=== PATIENT | male | born 1955 | race Two or more races ===

== ENCOUNTER → 2022-07-06 11:49 | Outpatient (BNVA) | payer OTHER, SELFPAY | PROVIDERS: PCP Internal Medicine; Referring Provider Internal Medicine; Visit Provider Student in an Organized Health Care Education/Training Program | DX: M19.90 Unspecified osteoarthritis, unspecified site (principal); R76.8 Other specified abnormal immunological findings in serum | CPT/HCPCS: 99202 ==

== ENCOUNTER 2022-07-11 12:21 | Outpatient (REF) | payer OTHER, SELFPAY ==
[2022-07-11 12:42] LABS: MANUAL DIFF FLAG NO
[2022-07-11 12:46] LABS: Basophils Percent Auto 0.4 % (0-2); Eosinophils Absolute Auto 0.1 X10*3/uL (0.0-0.4); Eosinophils Percent Auto 1.7 % (0-4); Hematocrit 42.8 % (42.0-52.0); Hemoglobin 14.9 g/dl (14.0-18.0); Imm Gran Abs Auto 0.02 X10*3/uL (0.00-0.03); Imm Gran Pct Auto 0.3 % (0.0-0.4); Lymphocytes Percent Auto 28.1 % (20-40); Mean Corpuscular HGB Conc 34.8 g/dl (31.0-36.0); Mean Corpuscular Hemoglobin 29.9 pg (27.0-33.0); Mean Corpuscular Volume 85.9 fL (80.0-98.0); Mean Platelet Volume 10.2 fL (9.4-12.4); Monocytes Absolute Auto 0.5 X10*3/uL (0.1-1.2); Monocytes Percent Auto 6.5 % (2-11); Neutrophils Absolute Auto 4.5 x10*3/uL (2.0-8.3); Platelet Count 180 X10*3/uL (160-400); Red Blood Count 4.98 X10*6/uL (4.60-5.80); Red Cell Distribution Width 11.9 % (11.0-16.0); White Blood Count 7.1 X10*3/uL (4.8-10.8)
[2022-07-11 12:53] LABS: Estimated Average Glucose 111 mg/dL; Hemoglobin A1c % 5.5 %
[2022-07-11 13:35] LABS: Erythrocyte Sedimentation Rate 10 MM/HR (0-15)
[2022-07-11 13:50] LABS: TSH reflex Free T4 1.16 uIU/mL (0.32-4.0)
[2022-07-11 13:52] LABS: HBc Num1 3.93 S/CO (0.00-0.79); Hepatitis A Antibody IgM 0.12 Index (0-0.79); Hepatitis B Surface Antigen Negative (Negative); ~HepC Num1 0.17 S/CO (0.00-0.79); ~Hepatitis A Antibody IgM Nonreactive (Nonreactive); ~Hepatitis B Surface Antibody REACTIVE (Nonreactive); ~Hepatitis C Antibody Nonreactive (Nonreactive)
[2022-07-11 13:54] LABS: Alanine Aminotransferase 16 U/L (0-40); Albumin Level 4.2 g/dL (3.5-5.0); Alkaline Phosphatase 68 U/L (39-117); Anion Gap 13 (12-20); Aspartate Amino Transferase 17 U/L (5-37); Bilirubin Total 0.5 mg/dL (0.0-1.0); Blood Urea Nitrogen 18 mg/dL (9-16); C Reactive Protein 0.38 mg/dL (< or = 0.50); Calcium 9.2 mg/dL (8.4-10.2); Carbon Dioxide 25 mmol/L (22-29); Chloride 106 mmol/L (96-108); Estimated Glomerular Filt Rate 58; Glucose Random 177 mg/dL (60-115); Potassium 4.3 mmol/L (3.3-5.1); Rheumatoid Factor < 13.0 IU/mL (<15.0); Sodium 140 mmol/L (135-145); Thyroid Stimulating Hormone 1.16 uIU/mL (0.32-4.0); Total Protein 6.7 g/dL (6.5-8.0); Uric Acid 6.6 mg/dL (3.4-7.0)
[2022-07-11 14:03] LABS: Appearance Urine Clear; Color Urine Yellow; Glucose Urine UA Negative (Negative); Leukocyte Esterase Urine Negative (Negative); Nitrite Urine Negative (Negative); PH 5.5 (5.0-9.0); Urine Blood Negative (Negative); Urine Ketones Negative (Negative); Urine Protein Negative (Neg-Trace)
[2022-07-11 14:09] LABS: Bacteria Urine None Seen (None Seen); Hyaline Casts Urine 0-2 /LPF (0-2); RBC Urine 0-2 /HPF (0-2); Squamous Epithelial Cell Urine 0-2 /HPF (0-2); WBC Urine 0-5 /HPF (0-5)
[2022-07-11 14:39] LABS: Creatinine Urine 167.81 mg/dL; Total Protein Urine Random < 7 mg/dL (<12)
[2022-07-11 15:02] LABS: HBc Num2 3.98 S/CO; HBc Num3 3.98 S/CO; Hepatitis B Core Antibody Reactive (Nonreactive)
[2022-07-13 21:12] LABS: Prot Elec - Albumin 4.1 g/dL (3.8-4.8); Prot Elec - Alpha1 0.3 g/dL (0.2-0.3); Prot Elec - Alpha2 0.7 g/dL (0.5-0.9); Prot Elec - Beta 1 0.5 g/dL (0.4-0.6); Prot Elec - Beta 2 0.5 g/dL (0.2-0.5); Prot Elec - Gamma 0.9 g/dL (0.8-1.7)
[2022-07-13 22:44] LABS: TS Negative Control Passed; TS Panel A 2; TS Panel B 0; TS Positive Control Passed; TSpotTB Negative (Negative)
[2022-07-13 23:19] LABS: Cardiolipin IgG Ab <2.0 GPL-U/mL
[2022-07-14 11:58] LABS: IgA 314 mg/dL (70-320); IgG 942 mg/dL (600-1540)
[2022-07-14 14:48] LABS: Antibody to SS-A Antigen <1.0 NEG AI (<1.0 NEG); Smith Protein <1.0 NEG AI (<1.0 NEG)
[2022-07-16 15:03] LABS: Anti DNA DS Antibody <1 IU/mL; Antibody to SS-B Antigen <1.0 NEG AI (<1.0 NEG); Complement C3 141 mg/dL (82-185); DNAds, Crithidia Antibody Negative (Negative); IgM 47 mg/dL (50-300); SM/Ribonucleoprotein Ab <1.0 NEG AI (<1.0 NEG); Thyroglobulin Antibodies <1 IU/mL (< or = 1); Thyroid Peroxidase Antibodies 2 IU/mL (<9)
[2022-07-17 18:54] LABS: Angiotensin Converting Enzyme 70.6 U/L (9-67); Cyclic Citrullinated Peptide <16 UNITS
[2022-07-17 22:49] LABS: PTT (LAC) Screen 36 sec (<=40)
[2022-07-18 13:23] LABS: Beta-2 Glycoprotein IgA 6.4 U/mL (<20.0); Beta-2 Glycoprotein IgG <2.0 U/mL (<20.0); Beta-2 Glycoprotein IgM <2.0 U/mL (<20.0); Cardiolipin IgM Ab <2.0 MPL-U/mL
[2022-07-19 07:23] LABS: HLA B27 Negative (Negative)
== END 2022-07-11 12:22 | disposition home or self-care (01) ==
LOC: HO.LAB 12:21
PROVIDERS: PCP Internal Medicine; Visit Provider Student in an Organized Health Care Education/Training Program
DX: Z13.1 Encounter for screening for diabetes mellitus (principal); Z11.59 Encounter for screening for other viral diseases; Z11.7 Encounter for testing for latent tuberculosis infection; M06.9 Rheumatoid arthritis, unspecified; M79.672 Pain in left foot; R76.8 Other specified abnormal immunological findings in serum
CPT/HCPCS: 36415; 80053; 81001; 82164; 82550; 82784; 83036; 84156; 84165; 84443; 84550; 85025; 85597; 85613; 85652; 85730; 86140; 86146; 86147; 86160; 86200; 86225; 86235; 86255; 86334; 86376; 86431; 86481; 86704; 86706; 86709; 86800; 86803; 86812; 87340

== ENCOUNTER 2022-07-26 13:52 | Outpatient (REF) | payer OTHER, SELFPAY ==
--- NOTE | ~2022-07-26 | MR_ITS ---
EXAMINATION: MRI HAND WITHOUT AND WITH CONTRAST, RIGHT CLINICAL INFORMATION: Right hand stiffness COMPARISON: None TECHNIQUE: MRI of the right hand is performed without and with intravenous administration of 10 mL of Gadavist on a 1.5 Vanessa scanner. FINDINGS: There is mild ill-defined edema and enhancement surrounding the 1st, 2nd, and 3rd flexor tendons at the level of the MCP joints. Edema/enhancement of the adjacent subcutaneous fat adjacent to the 1st flexor tendon and mild 2nd and 3rd flexor tenosynovitis in these locations. This is nonspecific and may be inflammatory or posttraumatic. No tendon tear is evident. Bone marrow signal is normal. No joint effusions or periarticular erosions. Collateral ligaments appear intact. MR/MR hand RT wo/w con IMPRESSION: Mild edema/enhancement along the 1st flexor tendon and adjacent soft tissues at the level of the MCP joint. Mild edema/enhancement and tenosynovitis of the 2nd and 3rd flexor tendons at the level of the MCP joints. This is nonspecific, possibly inflammatory. No tendon tear.
== END 2022-07-26 13:53 | disposition home or self-care (01) ==
LOC: HO.MRI 13:52
PROVIDERS: Visit Provider Student in an Organized Health Care Education/Training Program
DX: M25.541 Pain in joints of right hand (principal)
CPT/HCPCS: 73220; A9585

== ENCOUNTER → 2022-08-11 13:33 | Outpatient (BNVA) | payer OTHER, SELFPAY | PROVIDERS: PCP Internal Medicine; Visit Provider Student in an Organized Health Care Education/Training Program | DX: M06.09 Rheumatoid arthritis without rheumatoid factor, multiple sites (principal); Z79.631 Long term (current) use of antimetabolite agent | CPT/HCPCS: 99212 ==

== ENCOUNTER 2022-10-25 15:38 | Outpatient (REF) | payer OTHER, SELFPAY ==
[2022-10-25 15:55] LABS: MANUAL DIFF FLAG NO
[2022-10-25 16:22] LABS: Basophils Percent Auto 0.6 % (0-2); Eosinophils Absolute Auto 0.1 X10*3/uL (0.0-0.4); Eosinophils Percent Auto 1.7 % (0-4); Hematocrit 42.1 % (42.0-52.0); Hemoglobin 14.4 g/dl (14.0-18.0); Imm Gran Abs Auto 0.03 X10*3/uL (0.00-0.03); Imm Gran Pct Auto 0.4 % (0.0-0.4); Lymphocytes Absolute Auto 2.3 X10*3/uL (1.2-4.9); Lymphocytes Percent Auto 31.4 % (20-40); Mean Corpuscular HGB Conc 34.2 g/dl (31.0-36.0); Mean Corpuscular Hemoglobin 30.1 pg (27.0-33.0); Mean Corpuscular Volume 87.9 fL (80.0-98.0); Mean Platelet Volume 10.3 fL (9.4-12.4); Monocytes Absolute Auto 0.6 X10*3/uL (0.1-1.2); Monocytes Percent Auto 8.4 % (2-11); Neutrophils Absolute Auto 4.1 x10*3/uL (2.0-8.3); Neutrophils Percent Auto 57.5 % (45-73); Platelet Count 188 X10*3/uL (160-400); Red Blood Count 4.79 X10*6/uL (4.60-5.80); Red Cell Distribution Width 12.3 % (11.0-16.0); White Blood Count 7.2 X10*3/uL (4.8-10.8)
[2022-10-25 16:57] LABS: Erythrocyte Sedimentation Rate 7 MM/HR (0-15)
[2022-10-25 17:56] LABS: Alanine Aminotransferase 21 U/L (0-40); Alkaline Phosphatase 59 U/L (39-117); Anion Gap 16 (12-20); Aspartate Amino Transferase 19 U/L (5-37); Bilirubin Total 0.8 mg/dL (0.0-1.0); Blood Urea Nitrogen 18 mg/dL (9-16); C Reactive Protein 0.15 mg/dL (< or = 0.50); Calcium 9.2 mg/dL (8.4-10.2); Carbon Dioxide 23 mmol/L (22-29); Chloride 108 mmol/L (96-108); Estimated Glomerular Filt Rate > 60; Glucose Random 99 mg/dL (60-115); Potassium 4.5 mmol/L (3.3-5.1); Sodium 142 mmol/L (135-145); Total Protein 6.6 g/dL (6.5-8.0)
== END 2022-10-25 15:39 | disposition home or self-care (01) ==
LOC: HO.LAB 15:38
PROVIDERS: PCP Internal Medicine; Visit Provider Student in an Organized Health Care Education/Training Program
DX: Z20.2 Contact with and (suspected) exposure to infections with a predominantly sexual mode of transmission (principal); Z79.631 Long term (current) use of antimetabolite agent
CPT/HCPCS: 36415; 80053; 85025; 85652; 86140

== ENCOUNTER → 2022-11-09 14:40 | Outpatient (BNVA) | payer OTHER, SELFPAY | PROVIDERS: PCP Internal Medicine; Visit Provider Student in an Organized Health Care Education/Training Program | DX: Z13.89 Encounter for screening for other disorder (principal) ==

== ENCOUNTER 2023-04-17 07:26 | Outpatient (AMB) | payer OTHER, SELFPAY ==
--- NOTE | 2023-04-17 07:32 | A.OFFVIS_ITS ---
Intake Vital Signs 04/17/23 07:36 Height 5 ft 8 in Weight 222 lb 3.615 oz BMI 33.8 BP 138/76 Blood Pressure Location Rt brachial Position Sitting Pulse 71 Pulse Source Pulse Oximeter Temp 97.5 F Temp Source Skin Pulse Oximetry (%) 97 Oxygen Delivery Method Room Air Intake Visit Reasons: RA Intake Note: Here to follow up on RA. States Humira is not effective. 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 Accompanied by: Self / Same As Patient Allergies ampicillin Adverse Reaction (Unknown, Verified 04/17/23 07:45) Unknown Medication List - Last Reconciled 04/17/23 by Gail Gramajo MD adalimumab (Humira(CF) Pen) inject one - 40 mg/0.4 mL pen every 2 weeks subcut aspirin (Adult Low Dose Aspirin) 81 mg PO DAILY bupropion HCl 100 mg PO BID diclofenac sodium 1% (Arthritis Pain (diclofenac)) 2 grams topical QID duloxetine (Cymbalta) 30 mg PO DAILY ketotifen fumarate 0.025%(0.035%) 1 drp ophthalmic (eye) BID lidocaine 5% (Lidoderm) 1 patch topical DAILY lorazepam 0.5 mg PO .EVERY 6 HOURS PRN nitroglycerin 0.4 mg sublingual Q5M PRN sildenafil (Viagra) 25 mg PO DAILY PRN trazodone 100 mg PO BEDTIME PRN HPI HPI Comments History of Present Illness Details 67-year-old male with seronegative arthr itis returns for follow-up. He has been on Humira last 4-5 months, every 2 weeks. Denies any side effects. States that he feels worse overall. Continues to have pain in his hands, knees, ankles. He had a steroid injection in his left hand 4 months ago which gave him some relief. He was evaluated by hand surgeon and had nerve conduction tests and was told that he has severe carpal tunnel syndrome. He was evaluated by Infectious Disease and was told that Chikungunya infection can also cause carpal tunnel. He has severe tingling and numbness of his right hand. Has stiffness when he tries to make a fist with his right hand Initial history: This is a 66-year-old male with a past medical history of lumbar spinal stenosis s/p lumbar spine surgery, CAD, dyslipidemia, GERD a presents for evaluation of diffuse joint pain. Patient stated he was diagnosed with she can go knee a in 2017 in [place]. Since then his joints have not been the same. He has had pain in his wrists, hands, knees, ankles and feet. The pain however became more intense over the last 6-8 months. He has difficulty grabbing objects with both hands. He has morning stiffness of his hands lasting 1 hour improved with opening his hands under warm water. He also has bilateral knee pain worse on the left with left knee swelling. He also has had bilateral heel pain worse on the left. He has been taking Tylenol Arthritis which does not provide any relief. He takes ibuprofen twice a which also does not seem to help. He denies any skin rashes. He states that his mother had lupus and of colon cancer. His sister was also recently diagnosed with lupus. He was evaluated by Orthopedics 2 weeks ago and had a steroid injection into the left wrist without relief. [facility] Medical History (Updated 04/17/23 @ 08:14 by Gail Gramajo MD) JOAN positive Cervical radiculopathy Lesion of ulnar nerve Granuloma annulare Rotator cuff impingement syndrome CAD (coronary artery disease) GERD (gastroesophageal reflux disease) Dyslipidemia Obesity (BMI 35.0-39.9 without comorbidity) Surgical History Hx of shoulder surgery Hx of colonoscopy History of back surgery Family History Father Diabetes Thyroid disease Mother Colon cancer Lupus Sister Lupus Arthritis Paternal Grandfather No problems noted. Social History Household Members: Spouse Alcohol intake: former Patient Tobacco Use Status: Never used Tobacco service: Yes (Served 26 years ) Current occupational status: retired Review of Systems [employer] Reports arthralgias, Reports joint swelling, Reports numbness, Reports stiffness and Reports tingling Neuro Reports numbness and Reports tingling Physical Exam Vital Signs: Last Vital Signs Temp 97.5 F 04/17/23 07:36 Pulse 71 04/17/23 07:36 BP 138/76 04/17/23 07:36 Pulse Ox 97 04/17/23 07:36 Oxygen Delivery Method Room Air 04/17/23 07:36 BMI result Body Mass Index 33.8 Const General: cooperative, healthy appearing, comfortable, no acute distress and well developed Nutritional Appearance: average body habitus Orientation/consciousness: patient oriented x3 Limitations: no limitations HEENT Head: Yes normocephalic and Yes atraumatic Resp Effort & Inspection: normal respiratory effort and able to speak in complete sentences Neuro General: patient oriented x3 Extrem Other: Right wrist pain with full flexion and extension Right 2nd extensor tendon tenderness Right: No flexor tendon tenderness Right 4th MCP swelling and tenderness Positive MCP squeeze test right hand Left hand without flexor or extensor and tender tenderness No wrist swelling or tenderness or pain with full flexion and extension Bilateral elbow pain with full extension Bilateral anterior shoulder tenderness Normal range of motion of both shoulders Bilateral Achillis tendon tenderness without swelling or erythema Bilateral knee pain with full flexion Bilateral knee warmth and pain at the medial joint line No MTP tenderness to palpation Results Reviewed Results Reviewed: X-RAY EXAM OF HAND, 3+ VIEWS ? Result Date: 05/03/2022 History: Right hand pain. Right hand, 3 views: Compared to 12/02/2020. Very mild 2nd DIP joint degeneration is again noted. There are no other appreciable degenerative changes. There been no significant radiographic changes. Soft tissues are unremarkable. ? IMPRESSION IMPRESSION: Stable mild 2nd DIP joint degeneration. ? X-RAY EXAM OF HAND, 3+ VIEWS ? Result Date: 12/02/2020 History: Right hand pain. Trigger finger, 3rd finger. Right hand, 3 views: There is mild degeneration in the 2nd DIP joint. There are no other appreciable degenerative changes. There are no erosions. Soft tissues are unremarkable. ? IMPRESSION IMPRESSION: Mild 2nd DIP joint degeneration. Right hand MRI 06/2022 IMPRESSION: Mild edema/enhancement along the 1st flexor tendon and adjacent soft tissues at the level of the MCP joint. Mild edema/enhancement and tenosynovitis of the 2nd and 3rd flexor tendons at the level of the MCP joints. This is nonspecific, possibly inflammatory. No tendon tear. Assessment & Plan Assessment & Plan (1) Rheumatoid arthritis: Comment: seroneg dx 08/22 MTX started 08/22 ineffective DC 11/20 Humira 11/20 partially effective Code(s): M06.9 - Rheumatoid arthritis, unspecified Qualifiers: Rheumatoid arthritis location: multiple sites Rheumatoid factor presence: without rheumatoid factor Qualified Code(s): M06.09 - Rheumatoid arthritis without rheumatoid factor, multiple sites Plan: This is a 67-year-old male with seronegative arthritis (eroneg RA vs PsA) returns for follow-up. Has been on Humira 40 mg every other week for the last 4-5 months. States that he feels worse. On exam however patient has fewer tender joints. Humira is at least partially effective. (the majority of involved areas are tendinitis: achilles, biceps tendon, hand tendons, could which can point towards psoriatic arthritis rather than RA) Patient has a follow-up appointment with hand surgeon. He is to be scheduled for carpal tunnel release surgery for right hand, continue Humira 40 mg every other week for now. Will re-evaluate after surgery. Can consider switching to Enbrel or Orencia He has a positive JOAN 1-160 speckled with negative sub serologies, no evidence for other connective tissue disease at this point Labs before next visit in 3 months Infectious screening hepatitis panel and T spot -ve 06/2022 (2) Bilateral carpal tunnel syndrome: Code(s): G56.03 - Carpal tunnel syndrome, bilateral upper limbs Plan: Prescribed a wrist splint Follow-up with hand surgeon (3) High risk medication use: Code(s): Z79.899 - Other superintendent container terminal (current) drug therapy Plan: Side effects of Humira were discussed with the patient in detail including increased risk of infection, demyelinating disease, reactivation of latent TB, possible increased risk of solid and skin tumors. Patient fully aware. Advised patient to seek medical care ROBIN if patient has an infection and advised patient to stop the medication until the infection is resolved. Plan I spent 26 minutes reviewing patient's chart, evaluating patient, placing orders, counseling patient and documenting in the chart Orders: Orders C Reactive Protein 3 Months M06.9 - Rheumatoid arthritis, unspecified Erythrocyte Sedimentation Rate 3 Months M06.9 - Rheumatoid arthritis, unspecified Complete Blood Count Auto Diff 3 Months M06.9 - Rheumatoid arthritis, unspecified Comprehensive Met. Panel 3 Months M06.9 - Rheumatoid arthritis, unspecified Medications: New [wrist splint] wear nightly & as much as possible throughout the day 2 ea 0RF G56.03 - Carpal tunnel syndrome, bilateral upper limbs Coding Level of Care Code Est Pt Level 4 (72233) Diagnoses Rheumatoid arthritis of multiple sites with negative rheumatoid factor M06.09 Rheumatoid arthritis location: multiple sites Rheumatoid factor presence: without rheumatoid factor Bilateral carpal tunnel syndrome G56.03 High risk medication use Z79.899
[2023-04-17 07:36] VITALS: BP 138/76; PULSE 71; TEMP 36.4; O2SAT 97; BMI 33.8
== END 2023-04-17 08:05 | disposition home or self-care (01) ==
PROVIDERS: PCP Nurse Practitioner Family; Visit Provider Student in an Organized Health Care Education/Training Program
DX: M06.09 Rheumatoid arthritis without rheumatoid factor, multiple sites (principal); G56.03 Carpal tunnel syndrome, bilateral upper limbs; Z79.899 Other long term (current) drug therapy
CPT/HCPCS: 99214

== ENCOUNTER → 2023-04-17 07:26 | Outpatient (BNVA) | payer OTHER, SELFPAY | PROVIDERS: PCP Nurse Practitioner Family; Visit Provider Student in an Organized Health Care Education/Training Program ==

== ENCOUNTER 2023-06-02 15:59 | Outpatient (AMB) | payer OTHER, SELFPAY ==
--- NOTE | 2023-06-02 16:00 | MHC.OFFVIS ---
Intake Vital Signs 06/02/23 16:05 Height 5 ft 8 in Weight 220 lb 7.396 oz BMI 33.5 BP 128/62 Blood Pressure Location Rt brachial Position Sitting Pulse 81 Pulse Source Pulse Oximeter Temp 98.1 F Temp Source Skin Pulse Oximetry (%) 96 Intake Visit Reasons: RA Intake Note: Pt last seen 04/17/23, presents today for follow up. He was to follow up in 3 months, he has not completed bloodwork ordered at last visit. He is having a lot of pain in his hands. 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 Accompanied by: Self / Same As Patient Allergies ampicillin Adverse Reaction (Unknown, Verified 06/02/23 16:12) Unknown Medication List - Last Reconciled 06/02/23 by Gail Gramajo MD adalimumab (Humira(CF) Pen) inject one - 40 mg/0.4 mL pen every 2 weeks subcut aspirin (Adult Low Dose Aspirin) 81 mg PO DAILY bupropion HCl 100 mg PO BID diclofenac sodium 1% (Arthritis Pain (diclofenac)) 2 grams topical QID duloxetine (Cymbalta) 30 mg PO DAILY ketotifen fumarate 0.025%(0.035%) 1 drp ophthalmic (eye) BID lidocaine 5% (Lidoderm) 1 patch topical DAILY lorazepam 0.5 mg PO .EVERY 6 HOURS PRN nitroglycerin 0.4 mg sublingual Q5M PRN sildenafil (Viagra) 25 mg PO DAILY PRN trazodone 100 mg PO BEDTIME PRN [wrist splint wear nightly & as much as possible throughout the day] HPI HPI Comments History of Present Illness Details 67-year-old male with seronegative arthritis returns for follow-up. States that he had right hand carpal tunnel release surgery a few weeks ago with improved tingling of his fingers however he continues to have the same pain in both hands worse in the right hand. He also gets intermittent right knee pain especially when standing up after sitting for a while. Initial history: This is a 66-year-old male with a past medical history of lumbar spinal stenosis s/p lumbar spine surgery, CAD, dyslipidemia, GERD a presents for evaluation of diffuse joint pain. 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 Since then his joints have not been the same. He has had pain in his wrists, hands, knees, ankles and feet. The pain however became more intense over the last 6-8 months. He has difficulty grabbing objects with both hands. He has morning stiffness of his hands lasting 1 hour improved with opening his hands under warm water. He also has bilateral knee pain worse on the left with left knee swelling. He also has had bilateral heel pain worse on the left. He has been taking Tylenol Arthritis which does not provide any relief. He takes ibuprofen twice a which also does not seem to help. He denies any skin rashes. He states that his mother had lupus and of colon cancer. His sister was also recently diagnosed with lupus. He was evaluated by Orthopedics 2 weeks ago and had a steroid injection into the left wrist without relief. [facility] Medical History JOAN positive Cervical radiculopathy Lesion of ulnar nerve Granuloma annulare Rotator cuff impingement syndrome CAD (coronary artery disease) GERD (gastroesophageal reflux disease) Dyslipidemia Obesity (BMI 35.0-39.9 without comorbidity) Surgical History History of carpal tunnel release Hx of shoulder surgery Hx of colonoscopy History of back surgery Family History Father Diabetes Thyroid disease Mother Colon cancer Lupus Sister Lupus Arthritis Paternal Grandfather No problems noted. Social History Household Members: Spouse Alcohol intake: former Patient Tobacco Use Status: Never used Tobacco service: Yes (Served 26 years ) Current occupational status: retired Review of Systems [facility] Reports arthralgias, Reports joint swelling and Reports stiffness Physical Exam Vital Signs: Last Vital Signs Temp 98.1 F 06/02/23 16:05 Pulse 81 06/02/23 16:05 BP 128/62 06/02/23 16:05 Pulse Ox 96 06/02/23 16:05 BMI result Body Mass Index 33.5 Const General: cooperative, healthy appearing, comfortable, no acute distress and well developed Nutritional Appearance: average body habitus Orientation/consciousness: patient oriented x3 Limitations: no limitations HEENT Head: Yes normocephalic and Yes atraumatic Resp Effort & Inspection: normal respiratory effort and able to speak in complete sentences Neuro General: patient oriented x3 Extrem Other: Right wrist pain with full flexion and extension Swollen right hand dorsum Right 2nd extensor tendon tenderness Right: 1st 2nd and 3rd flexor tendon tenderness Left hand: 3rd and 4th flexor tendon tender Left elbow pain with full extension Bilateral anterior shoulder tenderness Normal range of motion of both shoulders No Achilles tendon tenderness or swelling bilaterally Office Procedures Tendon Injection Tendon Injection Details: The right palm was prepped with ChloraPrep and alcohol. Under a topical ethyl chloride spray the [1st, 2nd & 3rd] flexor tendon sheath was injected with 20 mg of triamcinolone and 0.2 cc of 1% lidocaine. The patient tolerated the procedure without any acute adverse effects. [id number] Tendon Sheath Injection All charges added?: Procedure code (CPT) selection complete Results Reviewed Results Reviewed: X-RAY EXAM OF HAND, 3+ VIEWS ? Result Date: 05/03/2022 History: Right hand pain. Right hand, 3 views: Compared to 12/02/2020. Very mild 2nd DIP joint degeneration is again noted. There are no other appreciable degenerative changes. There been no significant radiographic changes. Soft tissues are unremarkable. ? IMPRESSION IMPRESSION: Stable mild 2nd DIP joint degeneration. ? X-RAY EXAM OF HAND, 3+ VIEWS ? Result Date: 12/02/2020 History: Right hand pain. Trigger finger, 3rd finger. Right hand, 3 views: There is mild degeneration in the 2nd DIP joint. There are no other appreciable degenerative changes. There are no erosions. Soft tissues are unremarkable. ? IMPRESSION IMPRESSION: Mild 2nd DIP joint degeneration. Right hand MRI 06/2022 IMPRESSION: Mild edema/enhancement along the 1st flexor tendon and adjacent soft tissues at the level of the MCP joint. Mild edema/enhancement and tenosynovitis of the 2nd and 3rd flexor tendons at the level of the MCP joints. This is nonspecific, possibly inflammatory. No tendon tear. Assessment & Plan Assessment & Plan (1) Rheumatoid arthritis: Comment: seroneg dx 08/22 MTX started 08/22 ineffective DC 11/20 Humira 11/20 -06/22 ineffective DC 06/22 Code(s): M06.9 - Rheumatoid arthritis, unspecified Qualifiers: Rheumatoid arthritis location: multiple sites Rheumatoid factor presence: without rheumatoid factor Qualified Code(s): M06.09 - Rheumatoid arthritis without rheumatoid factor, multiple sites Plan: This is a 67-year-old male with seronegative arthritis (eroneg RA vs PsA) returns for follow-up. Has been on Humira 40 mg every other week for the last 7 months without relief. Continues to have multiple tender tendons. Will discontinue Humira. Given significant discomfort. I offered flexor tendon injections today. With patient's consent the right 1st, 2nd and 3rd flexor tendons were injected with Kenalog. Follow-up in 3 weeks to consider injection of left hand flexor tendon Will discuss other DMARDs next visit He has a positive JOAN 1-160 speckled with negative sub serologies, no evidence for other connective tissue disease at this point Labs before next visit in 3 months Infectious screening hepatitis panel and T spot -ve 06/2022 (2) Bilateral carpal tunnel syndrome: Code(s): G56.03 - Carpal tunnel syndrome, bilateral upper limbs Plan: s/p release right hand, by hand surgeon Plan I spent 26 minutes reviewing patient's chart, evaluating patient, counseling patient and documenting in the chart Orders: Orders AMB Injection-Tendon Today M77.8 - Other enthesopathies, not elsewhere classified Coding Level of Care Code Est Pt Level 4 (99423) Diagnoses Rheumatoid arthritis of multiple sites with negative rheumatoid factor M06.09 Rheumatoid arthritis location: multiple sites Rheumatoid factor presence: without rheumatoid factor Bilateral carpal tunnel syndrome G56.03 CPT Codes Tendon Injection - Tendon Injection 1: [id number] Tendon Sheath Injection ([id number])
[2023-06-02 16:05] VITALS: BP 128/62; PULSE 81; TEMP 36.7; O2SAT 96; BMI 33.5
== END 2023-06-02 16:44 | disposition home or self-care (01) ==
PROVIDERS: PCP Nurse Practitioner Family; Visit Provider Student in an Organized Health Care Education/Training Program
DX: M06.09 Rheumatoid arthritis without rheumatoid factor, multiple sites (principal); G56.03 Carpal tunnel syndrome, bilateral upper limbs
CPT/HCPCS: 20550; 99214

== ENCOUNTER → 2023-06-02 15:59 | Outpatient (BNVA) | payer OTHER, SELFPAY | PROVIDERS: PCP Nurse Practitioner Family; Visit Provider Student in an Organized Health Care Education/Training Program | DX: M06.09 Rheumatoid arthritis without rheumatoid factor, multiple sites (principal); G56.03 Carpal tunnel syndrome, bilateral upper limbs; R76.8 Other specified abnormal immunological findings in serum | CPT/HCPCS: 20550 ==

== ENCOUNTER 2023-06-21 10:22 | Outpatient (REF) | payer OTHER, SELFPAY ==
[2023-06-21 10:40] LABS: MANUAL DIFF FLAG NO
[2023-06-21 11:10] LABS: Basophils Percent Auto 0.4 % (0-2); Eosinophils Absolute Auto 0.2 X10*3/uL (0.0-0.4); Eosinophils Percent Auto 2.2 % (0-4); Hematocrit 45.4 % (42.0-52.0); Hemoglobin 15.4 g/dl (14.0-18.0); Imm Gran Abs Auto 0.03 X10*3/uL (0.00-0.03); Imm Gran Pct Auto 0.4 % (0.0-0.4); Lymphocytes Absolute Auto 2.5 X10*3/uL (1.2-4.9); Lymphocytes Percent Auto 37.7 % (20-40); Mean Corpuscular HGB Conc 33.9 g/dl (31.0-36.0); Mean Corpuscular Hemoglobin 29.7 pg (27.0-33.0); Mean Corpuscular Volume 87.6 fL (80.0-98.0); Mean Platelet Volume 10.3 fL (9.4-12.4); Monocytes Absolute Auto 0.6 X10*3/uL (0.1-1.2); Neutrophils Absolute Auto 3.4 x10*3/uL (2.0-8.3); Neutrophils Percent Auto 50.3 % (45-73); Platelet Count 196 X10*3/uL (160-400); Red Blood Count 5.18 X10*6/uL (4.60-5.80); Red Cell Distribution Width 12.2 % (11.0-16.0); White Blood Count 6.7 X10*3/uL (4.8-10.8)
[2023-06-21 11:30] LABS: Alanine Aminotransferase 21 U/L (0-40); Alkaline Phosphatase 58 U/L (39-117); Anion Gap 9 (12-20); Aspartate Amino Transferase 18 U/L (5-37); Bilirubin Total 0.7 mg/dL (0.0-1.0); Blood Urea Nitrogen 17 mg/dL (9-16); C Reactive Protein < 0.10 mg/dL (< or = 0.50); Calcium 9.3 mg/dL (8.4-10.2); Carbon Dioxide 31 mmol/L (22-29); Chloride 107 mmol/L (96-108); Estimated Glomerular Filt Rate 56; Glucose Random 107 mg/dL (60-115); Potassium 4.6 mmol/L (3.3-5.1); Sodium 142 mmol/L (135-145); Total Protein 7.1 g/dL (6.5-8.0)
[2023-06-21 11:53] LABS: Erythrocyte Sedimentation Rate 3 MM/HR (0-15)
== END 2023-06-21 10:23 | disposition home or self-care (01) ==
LOC: HO.LAB 10:22
PROVIDERS: PCP Nurse Practitioner Family; Visit Provider Student in an Organized Health Care Education/Training Program
DX: M06.9 Rheumatoid arthritis, unspecified (principal)
CPT/HCPCS: 36415; 80053; 85025; 85652; 86140

== ENCOUNTER 2023-07-04 10:56 | Outpatient (AMB) | payer OTHER, SELFPAY ==
[2023-07-04 11:40] VITALS: BP 126/68; PULSE 82; TEMP 37; O2SAT 99; BMI 33.2
--- NOTE | 2023-07-04 11:40 | MHC.OFFVIS ---
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 Allergies ampicillin Adverse Reaction (Unknown, Verified 07/04/23 11:46) Unknown Medication List - Last Reconciled 07/04/23 by Gail Gramajo MD aspirin (Adult Low Dose Aspirin) 81 mg PO DAILY bupropion HCl 100 mg PO BID diclofenac sodium 1% (Arthritis Pain (diclofenac)) 2 grams topical QID duloxetine (Cymbalta) 30 mg PO DAILY ketotifen fumarate 0.025%(0.035%) 1 drp ophthalmic (eye) BID lidocaine 5% (Lidoderm) 1 patch topical DAILY lorazepam 0.5 mg PO .EVERY 6 HOURS PRN nitroglycerin 0.4 mg sublingual Q5M PRN sildenafil (Viagra) 25 mg PO DAILY PRN trazodone 100 mg PO BEDTIME PRN [wrist splint wear nightly & as much as possible throughout the day] HPI HPI Comments History of Present Illness Details 67-year-old male with seronegative arthritis returns for follow-up. States that the injections for his right hand flexor tendons done last visit him significant relief. States that the pain is much better overall. 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 He has mild pain in his left hand and knee pain with walking. States he has a house in [place] and he just returned to [place] recently. Feels that the cold weather really affect his joints Initial history: This is a 66-year-old male with a past medical history of lumbar spinal stenosis s/p lumbar spine surgery, CAD, dyslipidemia, GERD a presents for evaluation of diffuse joint pain. Patient stated he was diagnosed with she can go knee a in 2017 in [place]. Since then his joints have not been the same. He has had pain in his wrists, hands, knees, ankles and feet. The pain however became more intense over the last 6-8 months. He has difficulty grabbing objects with both hands. He has morning stiffness of his hands lasting 1 hour improved with opening his hands under warm water. He also has bilateral knee pain worse on the left with left knee swelling. He also has had bilateral heel pain worse on the left. He has been taking Tylenol Arthritis which does not provide any relief. He takes ibuprofen twice a which also does not seem to help. He denies any skin rashes. He states that his mother had lupus and of colon cancer. His sister was also recently diagnosed with lupus. He was evaluated by Orthopedics 2 weeks ago and had a steroid injection into the left wrist without relief. [facility] Medical History JOAN positive Cervical radiculopathy Lesion of ulnar nerve Granuloma annulare Rotator cuff impingement syndrome CAD (coronary artery disease) GERD (gastroesophageal reflux disease) Dyslipidemia Obesity (BMI 35.0-39.9 without comorbidity) Surgical History History of carpal tunnel release Hx of shoulder surgery Hx of colonoscopy History of back surgery Family History Father Diabetes Thyroid disease Mother Colon cancer Lupus Sister Lupus Arthritis Paternal Grandfather No problems noted. Social History Household Members: Spouse Alcohol intake: former Patient Tobacco Use Status: Never used Tobacco service: Yes (Served 26 years ) Current occupational status: retired Review of Systems [facility] [place] Reports arthralgias and Reports stiffness Physical Exam Vital Signs: Last Vital Signs Temp 98.6 F 07/04/23 11:40 Pulse 82 07/04/23 11:40 BP 126/68 07/04/23 11:40 Pulse Ox 99 07/04/23 11:40 Oxygen Delivery Method Room Air 07/04/23 11:40 BMI result Body Mass Index 33.2 Const General: cooperative, healthy appearing, comfortable, no acute distress and well developed Nutritional Appearance: average body habitus Orientation/consciousness: patient oriented x3 Limitations: no limitations HEENT Head: Yes normocephalic and Yes atraumatic Resp Effort & Inspection: normal respiratory effort and able to speak in complete sentences Auscultation: clear to auscultation bilaterally Cardio Rate: regular rate Rhythm: regular rhythm GI Inspection: No distended Palpation (GI): Soft to palpation and nontender Neuro General: patient oriented x3 Extrem Other: No right wrist tenderness or pain with flexion & extension Right 1st MCP tenderness No flexor or extensor tendon tenderness right hand Left hand: 3rd and 4th flexor tendon tenderness Left 1st MCP tenderness Few Heberden's nodes Right knee pain with full flexion Normal range of motion of both shoulders No Achilles tendon tenderness or swelling bilaterally Results Reviewed Results Reviewed: X-RAY EXAM OF HAND, 3+ VIEWS ? Result Date: 05/03/2022 History: Right hand pain. Right hand, 3 views: Compared to 12/02/2020. Very mild 2nd DIP joint degeneration is again noted. There are no other appreciable degenerative changes. There been no significant radiographic changes. Soft tissues are unremarkable. ? IMPRESSION IMPRESSION: Stable mild 2nd DIP joint degeneration. ? X-RAY EXAM OF HAND, 3+ VIEWS ? Result Date: 12/02/2020 History: Right hand pain. Trigger finger, 3rd finger. Right hand, 3 views: There is mild degeneration in the 2nd DIP joint. There are no other appreciable degenerative changes. There are no erosions. Soft tissues are unremarkable. ? IMPRESSION IMPRESSION: Mild 2nd DIP joint degeneration. Right hand MRI 06/2022 IMPRESSION: Mild edema/enhancement along the 1st flexor tendon and adjacent soft tissues at the level of the MCP joint. Mild edema/enhancement and tenosynovitis of the 2nd and 3rd flexor tendons at the level of the MCP joints. This is nonspecific, possibly inflammatory. No tendon tear. Assessment & Plan Assessment & Plan (1) Rheumatoid arthritis: Comment: seroneg dx 08/22 MTX started 08/22 ineffective DC 11/20 Humira 11/20 -06/22 ineffective DC 06/22 Code(s): M06.9 - Rheumatoid arthritis, unspecified Qualifiers: Rheumatoid arthritis location: multiple sites Rheumatoid factor presence: without rheumatoid factor Qualified Code(s): M06.09 - Rheumatoid arthritis without rheumatoid factor, multiple sites Plan: This is a 67-year-old male with seronegative arthritis (seroneg RA vs PsA) who returns for follow-up. Steroid injection for right hand 1st, 2nd and 3rd flexor tendons done last visit provided significant relief. Today patient has no swollen joints and very few tender joints. Patient's left 4th flexor tendon is tender to palpation but does not want another injection today. He has a positive JOAN 1-160 speckled with negative sub serologies, no evidence for other connective tissue disease at this point Patient will be going to [place] for the winter. We will Re-evaluate in 3 months Infectious screening hepatitis panel and T spot -ve 06/2022 (2) Bilateral carpal tunnel syndrome: Code(s): G56.03 - Carpal tunnel syndrome, bilateral upper limbs Plan: s/p release right hand, by hand surgery Plan I spent 26 minutes reviewing patient's chart, evaluating patient, counseling patient and documenting in the chart Coding Level of Care Code Est Pt Level 4 (61593) Diagnoses Rheumatoid arthritis of multiple sites with negative rheumatoid factor M06.09 Rheumatoid arthritis location: multiple sites Rheumatoid factor presence: without rheumatoid factor Bilateral carpal tunnel syndrome G56.03
== END 2023-07-04 12:08 | disposition home or self-care (01) ==
PROVIDERS: PCP Nurse Practitioner Family; Visit Provider Student in an Organized Health Care Education/Training Program
DX: M06.09 Rheumatoid arthritis without rheumatoid factor, multiple sites (principal); G56.03 Carpal tunnel syndrome, bilateral upper limbs
CPT/HCPCS: 99214

== ENCOUNTER → 2023-07-04 10:56 | Outpatient (BNVA) | payer OTHER, SELFPAY | PROVIDERS: PCP Nurse Practitioner Family; Visit Provider Student in an Organized Health Care Education/Training Program ==

== ENCOUNTER 2023-10-18 13:11 | Outpatient (AMB) | payer OTHER, SELFPAY ==
--- NOTE | 2023-10-18 13:13 | A.OFFVIS_ITS ---
Intake Vital Signs 10/18/23 13:19 Height 5 ft 8 in Weight 215 lb 13.321 oz BMI 32.8 BP 126/70 Blood Pressure Location Lt brachial Position Sitting Pulse 60 Pulse Source Pulse Oximeter Temp 97.0 F Temp Source Skin Pulse Oximetry (%) 98 Oxygen Delivery Method Room Air Intake Visit Reasons: RA Intake Note: Patient last seen 07/04/23 presents today for follow up. 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 Accompanied by: Self / Same As Patient Allergies ampicillin Adverse Reaction (Unknown, Verified 10/18/23 13:22) Unknown Medication List - Last Reconciled 10/18/23 by Gail Gramajo MD aspirin (Adult Low Dose Aspirin) 81 mg PO DAILY bupropion HCl 100 mg PO BID diclofenac sodium 1% (Arthritis Pain (diclofenac)) 2 grams topical QID duloxetine (Cymbalta) 30 mg PO DAILY ketotifen fumarate 0.025%(0.035%) 1 drp ophthalmic (eye) BID lidocaine 5% (Lidoderm) 1 patch topical DAILY lorazepam 0.5 mg PO .EVERY 6 HOURS PRN nitroglycerin 0.4 mg sublingual Q5M PRN sildenafil (Viagra) 25 mg PO DAILY PRN trazodone 100 mg PO BEDTIME PRN [wrist splint wear nightly & as much as possible throughout the day] HPI HPI Comments History of Present Illness Details 68-year-old male with seronegative arthr itis returns for follow-up. Stated that injections done for his flexor tendons done last visit were quite helpful. He then went to [place]. He just came back. Stated that when he was in [place] he was not having any joint pain or stiffness. Now that he is back in [place] he is having generalized joint pain and stiffness particularly of the right hand. 1 hour of morning stiffness. States that his still works in [place] and will retire in December, he has house and [place], he ho pes to move there permanently. Initial history: This is a 66-year-old male with a past medical history of lumbar spinal stenosis s/p lumbar spine surgery, CAD, dyslipidemia, GERD a presents for evaluation of diffuse joint pain. Patient stated he was diagnosed with she can go knee a in 2016 in [place]. Since then his joints have not been the same. He has had pain in his wrists, hands, knees, ankles and feet. The pain however became more intense over the last 6-8 months. He has difficulty grabbing objects with both hands. He has morning stiffness of his hands lasting 1 hour improved with opening his hands under warm water. He also has bilateral knee pain worse on the left with left knee swelling. He also has had bilateral heel pain worse on the left. He has been taking Tylenol Arthritis which does not provide any relief. He takes ibuprofen twice a which also does not seem to help. He denies any skin rashes. He states that his mother had lupus and of colon cancer. His sister was also recently diagnosed with lupus. He was evaluated by Orthopedics 2 weeks ago and had a steroid injection into the left wrist without relief. [facility] Medical History JOAN positive Cervical radiculopathy Lesion of ulnar nerve Granuloma annulare Rotator cuff impingement syndrome CAD (coronary artery disease) GERD (gastroesophageal reflux disease) Dyslipidemia Obesity (BMI 35.0-39.9 without comorbidity) Surgical History History of carpal tunnel release Hx of shoulder surgery Hx of colonoscopy History of back surgery Family History Father Diabetes Thyroid disease Mother Colon cancer Lupus Sister Lupus Arthritis Paternal Grandfather No problems noted. Social History Household Members: Spouse Alcohol intake: former Patient Tobacco Use Status: Never used Tobacco service: Yes (Served 26 years ) Current occupational status: retired Review of Systems [facility] Reports arthralgias and Reports stiffness Physical Exam Vital Signs: Last Vital Signs Temp 97.0 F 10/18/23 13:19 Pulse 60 10/18/23 13:19 BP 126/70 10/18/23 13:19 Pulse Ox 98 10/18/23 13:19 Oxygen Delivery Method Room Air 10/18/23 13:19 BMI result Body Mass Index 32.8 Const General: cooperative, healthy appearing, comfortable, no acute distress and well developed Nutritional Appearance: average body habitus Orientation/consciousness: patient oriented x3 Limitations: no limitations HEENT Head: Yes normocephalic and Yes atraumatic Resp Effort & Inspection: normal respiratory effort and able to speak in complete sentences Cardio Rate: regular rate Rhythm: regular rhythm Neuro General: patient oriented x3 Extrem Other: Right wrist pain with full flexion Right 4th MCP tenderness Right 3rd flexor tendon tenderness Left wrist with no tenderness or pain with flexion and extension No synovitis left hand Right knee pain with full flexion Normal range of motion of both shoulders No Achilles tendon tenderness or swelling bilaterally Office Procedures Tendon Injection Tendon Injection Details: With patient's consent, The right palm was prepped with ChloraPrep and alcohol. Under a topical ethyl chloride spray the [3rd] flexor tendon sheath was injected with 20 mg of triamcinolone and 0.2 cc of 1% lidocaine. The patient tolerated the procedure without any acute adverse effects. [id number] Tendon Sheath Injection All charges added?: Procedure code (CPT) selection complete Results Reviewed Results Reviewed: X-RAY EXAM OF HAND, 3+ VIEWS ? Result Date: 05/03/2022 History: Right hand pain. Right hand, 3 views: Compared to 12/02/2020. Very mild 2nd DIP joint degeneration is again noted. There are no other appreciable degenerative changes. There been no significant radiographic changes. Soft tissues are unremarkable. ? IMPRESSION IMPRESSION: Stable mild 2nd DIP joint degeneration. ? X-RAY EXAM OF HAND, 3+ VIEWS ? Result Date: 12/02/2020 History: Right hand pain. Trigger finger, 3rd finger. Right hand, 3 views: There is mild degeneration in the 2nd DIP joint. There are no other appreciable degenerative changes. There are no erosions. Soft tissues are unremarkable. ? IMPRESSION IMPRESSION: Mild 2nd DIP joint degeneration. Right hand MRI 06/2022 IMPRESSION: Mild edema/enhancement along the 1st flexor tendon and adjacent soft tissues at the level of the MCP joint. Mild edema/enhancement and tenosynovitis of the 2nd and 3rd flexor tendons at the level of the MCP joints. This is nonspecific, possibly inflammatory. No tendon tear. Assessment & Plan Assessment & Plan (1) Rheumatoid arthritis: Comment: seroneg dx 08/22 MTX started 08/22 ineffective DC 11/20 Humira 11/20 -06/22 ineffective DC 06/22 Code(s): M06.9 - Rheumatoid arthritis, unspecified Qualifiers: Rheumatoid arthritis location: multiple sites Rheumatoid factor presence: without rheumatoid factor Qualified Code(s): M06.09 - Rheumatoid arthritis without rheumatoid factor, multiple sites Plan: This is a 68-year-old male with seronegative arthritis (seroneg RA vs PsA) who returns for follow-up. Patient did not respond to methotrexate and Humira. Patient had multiple flexor tendon steroid injection 3-4 months ago significant relief. He just returned from [place] recently. States that when he was in [place] who was doing quite well with no joint pain or stiffness. Now that he is back in [place] he has been having some right hand pain and stiffness. On exam today he has right 3rd finger flexor tendon tenderness, consistent with tendonitis. With patient's consent, right 3rd flexor tendon was injected with Kenalog today. Infectious screening hepatitis panel and T spot -ve 06/2022 Patient might be moving to [place] within the coming few months. Advised patient to try using [id number] Voltaren gel on affected areas in the hands Follow-up p.r.n., Plan I spent 16 minutes reviewing patient's chart, evaluating patient, counseling patient and documenting in the chart Orders: Orders AMB Injection-Tendon Today M77.8 - Other enthesopathies, not elsewhere classified Coding Level of Care Code Est Pt Level 3 (74232) Diagnoses Rheumatoid arthritis of multiple sites with negative rheumatoid factor M06.09 Rheumatoid arthritis location: multiple sites Rheumatoid factor presence: without rheumatoid factor CPT Codes Tendon Injection - Tendon Injection 1: [id number] Tendon Sheath Injection ([id number])
[2023-10-18 13:19] VITALS: BP 126/70; PULSE 60; TEMP 36.1; O2SAT 98; BMI 32.8
== END 2023-10-18 13:37 | disposition home or self-care (01) ==
PROVIDERS: PCP Nurse Practitioner Family; Referring Provider Nurse Practitioner Family; Visit Provider Student in an Organized Health Care Education/Training Program
DX: M06.09 Rheumatoid arthritis without rheumatoid factor, multiple sites (principal); M25.641 Stiffness of right hand, not elsewhere classified
CPT/HCPCS: 20550; 99213

== ENCOUNTER → 2023-10-18 13:11 | Outpatient (BNVA) | payer OTHER, SELFPAY | PROVIDERS: PCP Nurse Practitioner Family; Visit Provider Student in an Organized Health Care Education/Training Program | DX: M06.09 Rheumatoid arthritis without rheumatoid factor, multiple sites (principal); M77.8 Other enthesopathies, not elsewhere classified | CPT/HCPCS: 20550; J3301 ==